=== PATIENT | male | born 1970 | race Two or more races ===

== ENCOUNTER 2021-01-30 07:12 | Emergency (ER) | payer MEDICAID, OTHER ==
[~2021-01-30] VITALS: Ht 165.1 cm; Wt 90.7 kg
[2021-01-30 09:25] LABS: Urine Amorphous Crystal FEW /hpf (None Seen); Urine Bacteria NONE SEEN /hpf (None Seen); Urine Blood Negative /uL (Negative); Urine Mucus FEW (None Seen); Urine Specific Gravity 1.032 (1.001-1.035); Urine WBC <1 /hpf (0 - 3)
[2021-01-30 10:14] VITALS: BP 159/98
[2021-01-30] MEDS ORDERED: cefTRIAXone SOD 1,000 MG VL IM ONE (10:30)
[2021-01-30] MEDS ORDERED: LIDOCAINE 1% HCL (LOCAL ANESTH.) INJ 20ML MDV ONE (10:51)
== END 2021-01-30 11:05 | disposition home or self-care (01) ==
LOC: EDBD 07:12 → ER 07:12
DX: N48.22 Cellulitis of corpus cavernosum and penis (principal); E11.9 Type 2 diabetes mellitus without complications; I10 Essential (primary) hypertension
CPT/HCPCS: 81001; 96372; 99283; J0696; J2001

== ENCOUNTER 2024-11-30 13:58 | Emergency (ER) | payer MEDICAID ==
[~2024-11-30] VITALS: Ht 160 cm; Wt 83.3 kg
--- NOTE | 2024-11-30 15:39 | ED.PDOC ---
History of Present Illness HPI Comments 54-year-old male presents with a chief complaint of abscess to tooth #22 x onset Friday. Patient reports that he had a dental appointment yesterday and had a ruptured periapical abscess to his LUQ tooth 22. Patient was referred to the ER by his dentist for antibiotics. Patient states that he has only been taking Ibuprofen for the pain. Chief Complaint: Tooth Pain Time Seen by MD: 15:28 Primary Care Provider: [facility] Reviewed Notes: Nurses Notes, Medications, Allergies Allergies: Coded Allergies: No Known Drug Allergy (Verified Allergy, Unknown, 01/30/21) Home Meds Active Scripts Tramadol HCl (Tramadol HCl) 50 Mg Tab, 50 MG PO Q8HP PRN for 10 Days, #30 TAB 0 Refills Prov:DEEPTI QUEVEDO EDGER MACHINE OPERATOR 11/30/24 Amoxicillin & Pot Clavulanate (AUGMENTIN TABLET) 875 Mg Tb, 875 MG PO BID for 7 Days, #14 TAB 0 Refills Prov:DEEPTI QUEVEDO EDGER MACHINE OPERATOR 11/30/24 Information Source: Patient Mode of Arrival: Ambulatory Severity: Moderate Timing: Days Duration: Since onset Prehospital treatment: None Past Medical History PAST MEDICAL HISTORY: DM, HTN, Denies Surgical History: Denies all surgeries Family History Family History: Unknown Social History Smoker: Non-Smoker Alcohol: Denies ETOH Use Drugs: Denies Drug Use Lives In: Home All Other Systems: Reviewed and Negative ( PER HPI) Physical Exam General Appearance: No Apparent Distress, Normal HEENT: Normal ENT Inspection, Pharynx Normal, TMs Normal, Other (RUPTURED PERIAPICAL ABSCESS TO TOOTH #22, UVULA MIDLINE, NO AIRWAY OBSTRUCTION) Neck: Full Range of Motion, Non-Tender, Normal, Normal Inspection Respiratory: Chest Non-Tender, Lungs Clear, No Accessory Muscle Use, No Respiratory Distress, Normal Breath Sounds Cardiovascular: No Murmur, No Gallop, Regular Rate/Rhythm Breast Exam: Deferred Gastrointestinal: No Organomegaly, Non Tender, No Pulsatile Mass, Normal Bowel Sounds, Soft Genitalia: Deferred Pelvic: Deferred Rectal: Deferred Extremities: No calf tenderness, Normal capillary refill, Normal inspection, Normal range of motion, Non-tender, No pedal edema Musculoskeletal : Apperance: Normal Neurologic: Alert, manager grant II-XII nml as Tested, No Motor Deficits, Normal Affect, Normal Mood, No Sensory Deficits Cerebellar Function: Normal Reflexes: Normal Skin: Dry, Normal Color, Warm Lymphatic: No Adenopathy Was a procedure done? Was a procedure done?: No Differential Dx Considerations may include: tooth pain, dental carries, dental abscess X-Ray, Labs, Meds, VS Vital Signs Date Time Temp Pulse Resp B/P (MAP) Pulse Ox O2 Delivery O2 Flow Rate FiO2 11/30/24 16:10 98.0 97 16 117/78 (91) 96 98.0 11/30/24 16:10 98 17 96 Room Air 11/30/24 14:20 97.7 103 17 115/71 (86) 96 97.7 Current Medications Medications (Trade) Dose Ordered Sig/Ning Route Start Time Stop Time Status Last Admin Ketorolac Tromethamine (Toradol Injection) 60 mg ONCE ONCE IM 11/30/24 15:45 11/30/24 15:46 DC 11/30/24 16:04 X-Ray, Labs, Meds, VS Comment 54-year-old male presents with a chief complaint of tooth pain x onset Friday. Patient arrives alert and oriented, ABC's intact, afebrile, vital signs stable, saturating well in room air Patient was given; TORADOL IM. Tolerated medications with no adverse reaction. Patient not immunosuppressed. No evidence of tooth fracture, avulsion, or bleeding socket. No e/o retropharangeal abscess, peritonsillar abscess, Ludwigs angina, periapical abscess. No e/o gingival hyperplasia or concern for drug reaction. Prescribed p.o. antibiotics for presentation of symptoms Complete course of antibiotic therapy even if symptoms improve or resolve. T here should be no leftover antibiotics as this can lead to antibiotic resistant bacteria and even worse infection. Patient verbalized understanding. Potential side effects discussed with patient including abdominal pain, nausea, diarrhea. Disposition: Discharge home. Discussed return precautions for odontogenic infections and other dental pain emergencies. Will provide dental clinic list. Additional MDM Review of External, Non-ED records: External records reviewed. Discussion with independent historian (EMS, family) history obtained from the patient/parents (if applicable) at bedside Chronic conditions affecting care: None Social determinants of health affecting care: None Consideration of admission (observation or admission): I considered escalation of care to admission for this patient, however given the reassuring workup, the patient is safe for outpatient management. Discussion with the Radiology: No Tests considered but not performed: Prescription medication considered but not given: Time of 1ST Reevaluation: 15:58 Reevaluation 1ST: Unchanged Patient Education/Counseling: Diagnosis, Treatment, Prognosis Family Education/Counseling: No Family Present SEPSIS Sepsis Screen Date sepsis recognized/suspect: Nov 30, 2024 Time Sepsis recognized/suspect: 0 Recent Procedure: No On Antibiotic Therapy: No Respiratory Rate >20: No Heart Rate >90: Yes (103) Temp<36 C (96.8 F) or >38.3 C: No SBP <90 or MAP <65 mmHG: No New Acute Mental Status Change: No Is the patient on CPAP, BIPAP,: No Vital Signs Date Time Temp Pulse Resp B/P (MAP) Pulse Ox O2 Delivery O2 Flow Rate FiO2 11/30/24 16:10 98.0 97 16 117/78 (91) 96 98.0 11/30/24 16:10 98 17 96 Room Air 11/30/24 14:20 97.7 103 17 115/71 (86) 96 97.7 Departure 1 Departure Time of Disposition: 15:40 Impression: Primary Impression: Periapical abscess Disposition: 01 HOME / SELF CARE / HOMELESS Condition: Stable e-Prescriptions Tramadol HCl (Tramadol HCl) 50 Mg Tab 50 MG PO Q8HP PRN for 10 Days, #30 TAB 0 Refills Prov: DEEPTI QUEVEDO EDGER MACHINE OPERATOR 11/30/24 Amoxicillin & Pot Clavulanate (AUGMENTIN TABLET) 875 Mg Tb 875 MG PO BID for 7 Days, #14 TAB 0 Refills Prov: DEEPTI QUEVEDO NP 11/30/24 Critical Care Note Critical Care Time?: No Stability Stability form required: No Heart Score Heart Score: Heart Score Response (Comments) Value History N/A 0 EKG N/A 0 Age N/A 0 Risk Factors N/A 0 Troponin N/A 0 Total 0 I personally scribed for DEEPTI QUEVEDO NP ([email or web address]) on 11/30/24 at 15:39. Electronically submitted by Peter Plummer ([email or web address]). DEEPTI QUEVEDO NP Nov 30, 2024 15:39
[2024-11-30] MEDS ORDERED: AUG875T PO (15:42)
[2024-11-30] MEDS ORDERED: TRAM-626 PO (15:42)
[2024-11-30] MEDS: KETOROLAC TROMETH 60MG/2ML VIAL IM ONE (16:04)
[2024-11-30 16:10] VITALS: BP 117/78; PULSE 98; RESP 17; TEMP 98; O2SAT 96
== END 2024-11-30 16:13 | disposition home or self-care (01) ==
LOC: ER 13:58
DX: K04.7 Periapical abscess without sinus (principal); I10 Essential (primary) hypertension; E11.9 Type 2 diabetes mellitus without complications; Z79.899 Other long term (current) drug therapy
CPT/HCPCS: 96372; 99283; J1885